=== PATIENT | female | born 1950 | race Caucasian/White ===

== ENCOUNTER 2017-02-16 11:40 | Emergency (ER) | payer MEDICARE ==
[~2017-02-16] VITALS: Ht 172.7 cm; Wt 70.5 kg
[~2017-02-16 11:40] MED LIST: AMIT100T2 PO; HYOS0.379 PO; LOVA40TA PO; PROT40T PO; [UNRECOGNIZED DRUG - OTHER]; [UNRECOGNIZED DRUG - OTHER]
[2017-02-16 11:43] VITALS: BP 158/86; PULSE 69; RESP 16; O2SAT 98
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
--- NOTE | 2017-02-16 12:38 | DRSVH ---
PROCEDURE: CT BRAIN WITHOUT CONTRAST ([id number]) INDICATIONS: trauma TECHNIQUE: Noncontrast 4.5 mm thick angled axial sections acquired from the foramen magnum to the vertex, with c oronal reformats. COMPARISON: None. FINDINGS: Image quality: Excellent. CSF spaces: Basal cisterns are patent. No extra-axial fluid collections. Ventricles are normal in size and shape. 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 No midline shift. No intracranial masses or hemorrhage. Butcher-white matter interface is no rmal. Skull and face: Calvarium and visualized facial bones are intact, without suspicious lesions. Sinuses: Visualized sinuses and mastoids are clear. IMPRESSION: 1. No acute intracranial abnormalities. Dictated by: Terrence Desai M.D. on 02/16/2017 at 12:35 Approved by: Terrence Desai M.D. on 02/16/2017 at 12:37
[2017-02-16] MEDS ORDERED: ONDA4TAB9 PO (14:13)
[2017-02-16 14:18] VITALS: BP 135/72; PULSE 68; RESP 20; O2SAT 95
== END 2017-02-16 14:19 | disposition home or self-care (01) ==
LOC: SED 12:07
DX: S06.0X0A Concussion without loss of consciousness, initial encounter (principal); W22.8XXA Striking against or struck by other objects, initial encounter; Y93.89 Activity, other specified; Y92.019 Unspecified place in single-family (private) house as the place of occurrence of the external cause; Y99.8 Other external cause status; Z87.891 Personal history of nicotine dependence; Z88.0 Allergy status to penicillin